=== PATIENT | male | born 1950 | race Caucasian/White ===

== ENCOUNTER 2022-08-12 16:04 | Inpatient (IN) | payer OTHER ==
[~2022-08-12] VITALS: Ht 185.4 cm; Wt 125.0 kg
[2022-08-12] MEDS ORDERED: ACETAMINOPHEN 325 MG TAB PO ONE ×2 (21:30→22:05)
[2022-08-12] MEDS ORDERED: SODIUM CHLORIDE 0.9% 1,000 ML IV ONE (21:30)
[2022-08-12] MEDS ORDERED: ceFAZolin 1GM/50ML 50 ML IV ONE (21:30)
[2022-08-12] MEDS ORDERED: ONDANSETRON HCL 4 MG/2 ML VIAL IV ONE (21:30)
[2022-08-12 22:22] LABS: Eosinophils # (auto) 0 10 ^3/uL (0-0.8); Eosinophils % (auto) 0.3 % (0.0-7.0); Hemoglobin 14.2 g/dL (13.5-17.5); Lymphocytes # (auto) 0.9 10 ^3/uL (0.4-5.4); Mean Corpuscular Hemoglobin 26.7 pg (28.0-32.0); Neutrophils % (auto) 84.5 % (37.0-80.0)
[2022-08-12 22:24] LABS: Basophils # (auto) 0.1 10 ^3/uL (0-0.2); Basophils % (auto) 0.6 % (0.0-2.0); Hematocrit 42.5 % (41.0-53.0); Lymphocytes % (auto) 7.4 % (10.0-50.0); Mean Corpuscular Hgb Conc. 33.5 g/dL (32.0-36.0); Mean Corpuscular Volume 79.8 fL (80.0-100.0); Monocytes # (auto) 0.8 10 ^3/uL (0-1.3); Monocytes % (auto) 7.2 % (0.0-12.0); Neutrophils # (auto) 9.9 10 ^3/uL (1.6-8.6); Nucleated Red Blood Cells % 0.1 %; Red Blood Cells 5.33 10^6/uL (4.5-5.90); Red Cell Distribution Width 16.1 % (11.8-14.3); White Blood Cell 11.7 10^3/uL (4.4-10.8)
[2022-08-12 22:34] LABS: Albumin 2.7 g/dL (3.4-5.0); Potassium 3.8 mmol/L (3.5-5.1)
[2022-08-12 22:51] LABS: BUN/Creatinine Ratio 16.1 (10.0-20.0); Bilirubin, Total 0.5 mg/dL (0.2-1.0); CRP High Sensitivity 15.9 mg/dL (< 0.3); Total Protein 8.3 g/dL (6.4-8.2)
[2022-08-13] MEDS ORDERED: VANCOMYCIN PER PHARMACY 0 MG IV SCH (07:00)
[2022-08-13] MEDS ORDERED: ONDANSETRON HCL 4 MG/2 ML VIAL IV PRN (07:00)
[2022-08-13] MEDS ORDERED: DEXTROSE (50%) 50ML SYRG IV PRN (07:00)
[2022-08-13] MEDS: InsuLIN REG 1unit/0.01ml Soln (100units/ml) SC SCH ×4 (07:45→23:04)
[2022-08-13] MEDS: ACCU-CHEK COMFORT CURVE STRIP VI SCH ×4 (07:45→22:00)
[2022-08-13] MEDS: VANCOMYCIN 1GM/250ML 250 ML IV SCH ×2 (07:52→09:04)
[2022-08-13] MEDS ORDERED: VANCOMYCIN 1GM/250ML 250 ML IV SCH (10:00)
[2022-08-13] MEDS: ENOXAPARIN SOD 40 MG/0.4 ML SYRINGE SC SCH (10:09)
[2022-08-13 17:55] VITALS: BP 159/63
[2022-08-13] MEDS: glipiZIDE 5 MG TAB PO SCH (18:30)
[2022-08-13 20:00] VITALS: BP 128/57
[2022-08-13 22:00] VITALS: BP 128/57
[2022-08-13] MEDS: ATORVASTATIN 20 MG TAB PO SCH (22:44)
[2022-08-13] MEDS: CARVEDILOL 12.5 MG TAB PO SCH (22:45)
[2022-08-13] MEDS: HYDROcodone-ACET 10/325MG TAB PO PRN (22:46)
[2022-08-13] MEDS: GABAPENTIN 300 MG CAP PO SCH (22:46)
[2022-08-14] VITALS (7 sets, daily range): BP systolic 104–160; BP diastolic 54–66
[2022-08-14] MEDS: VANCOMYCIN 1GM/250ML 250 ML IV SCH ×2 (00:25→14:38)
[2022-08-14] MEDS: InsuLIN REG 1unit/0.01ml Soln (100units/ml) SC SCH ×5 (06:31→23:15)
[2022-08-14] MEDS: ACCU-CHEK COMFORT CURVE STRIP VI SCH ×4 (06:34→22:00)
[2022-08-14] MEDS: glipiZIDE 5 MG TAB PO SCH ×2 (06:34→18:17)
[2022-08-14] MEDS: LOSARTAN POTASSIUM 25 MG TAB PO SCH (10:02)
[2022-08-14] MEDS: CARVEDILOL 12.5 MG TAB PO SCH ×2 (10:03→23:03)
[2022-08-14] MEDS: GABAPENTIN 300 MG CAP PO SCH ×2 (10:03→23:01)
[2022-08-14] MEDS: DIGOXIN 0.25 MG TAB PO SCH (10:03)
[2022-08-14] MEDS: ENOXAPARIN SOD 40 MG/0.4 ML SYRINGE SC SCH (10:03)
[2022-08-14] MEDS: HYDROcodone-ACET 10/325MG TAB PO PRN (16:40)
[2022-08-14] MEDS: APIXABAN 5 MG TAB PO SCH (23:01)
[2022-08-14] MEDS: ATORVASTATIN 20 MG TAB PO SCH (23:01)
[2022-08-15] VITALS (7 sets, daily range): BP systolic 103–143; BP diastolic 57–83
[2022-08-15 05:56] LABS: Basophils # (auto) 0.1 10 ^3/uL (0-0.2); Basophils % (auto) 0.7 % (0.0-2.0); Eosinophils # (auto) 0.1 10 ^3/uL (0-0.8); Eosinophils % (auto) 1.9 % (0.0-7.0); Hematocrit 33.2 % (41.0-53.0); Hemoglobin 11.6 g/dL (13.5-17.5); Lymphocytes # (auto) 0.7 10 ^3/uL (0.4-5.4); Lymphocytes % (auto) 9.8 % (10.0-50.0); Mean Corpuscular Hgb Conc. 34.9 g/dL (32.0-36.0); Mean Corpuscular Volume 77.4 fL (80.0-100.0); Monocytes # (auto) 0.4 10 ^3/uL (0-1.3); Monocytes % (auto) 5.1 % (0.0-12.0); Neutrophils # (auto) 5.7 10 ^3/uL (1.6-8.6); Neutrophils % (auto) 82.5 % (37.0-80.0); Nucleated Red Blood Cells % 0.1 %; Red Blood Cells 4.29 10^6/uL (4.5-5.90); Red Cell Distribution Width 15.8 % (11.8-14.3)
[2022-08-15 06:07] LABS: Albumin 1.9 g/dL (3.4-5.0); Potassium 3.8 mmol/L (3.5-5.1)
[2022-08-15 06:09] LABS: BUN/Creatinine Ratio 15.3 (10.0-20.0); Calcium 8.4 mg/dL (8.5-10.1); Phosphorus 2.9 mg/dL (2.5-4.90)
[2022-08-15] MEDS: VANCOMYCIN 1GM/250ML 250 ML IV SCH ×2 (06:16→21:00)
[2022-08-15] MEDS: InsuLIN REG 1unit/0.01ml Soln (100units/ml) SC SCH ×3 (06:17→17:41)
[2022-08-15] MEDS: glipiZIDE 5 MG TAB PO SCH ×2 (06:19→18:09)
[2022-08-15] MEDS: ACCU-CHEK COMFORT CURVE STRIP VI SCH ×4 (06:20→22:00)
[2022-08-15] MEDS: ENOXAPARIN SOD 40 MG/0.4 ML SYRINGE SC SCH (10:33)
[2022-08-15] MEDS: APIXABAN 5 MG TAB PO SCH ×2 (10:34→22:29)
[2022-08-15] MEDS: CARVEDILOL 12.5 MG TAB PO SCH ×2 (10:34→22:29)
[2022-08-15] MEDS: LOSARTAN POTASSIUM 25 MG TAB PO SCH (10:34)
[2022-08-15] MEDS: DIGOXIN 0.25 MG TAB PO SCH (10:34)
[2022-08-15] MEDS: GABAPENTIN 300 MG CAP PO SCH ×2 (10:35→22:28)
[2022-08-15] MEDS: ATORVASTATIN 20 MG TAB PO SCH (22:28)
[2022-08-16] VITALS (7 sets, daily range): BP systolic 138–159; BP diastolic 52–73
[2022-08-16] MEDS: glipiZIDE 5 MG TAB PO SCH ×2 (05:14→18:35)
[2022-08-16] MEDS: InsuLIN REG 1unit/0.01ml Soln (100units/ml) SC SCH ×4 (05:14→21:34)
[2022-08-16] MEDS: ACCU-CHEK COMFORT CURVE STRIP VI SCH ×4 (05:40→22:00)
[2022-08-16] MEDS: ENOXAPARIN SOD 40 MG/0.4 ML SYRINGE SC SCH (09:57)
[2022-08-16] MEDS: LOSARTAN POTASSIUM 25 MG TAB PO SCH (09:58)
[2022-08-16] MEDS: CARVEDILOL 12.5 MG TAB PO SCH ×2 (09:58→21:34)
[2022-08-16] MEDS: APIXABAN 5 MG TAB PO SCH ×2 (09:58→21:34)
[2022-08-16] MEDS: GABAPENTIN 300 MG CAP PO SCH ×2 (09:58→21:34)
[2022-08-16] MEDS: DIGOXIN 0.25 MG TAB PO SCH (11:16)
[2022-08-16] MEDS: VANCOMYCIN 1GM/250ML 250 ML IV SCH (12:50)
[2022-08-16] MEDS: HYDROcodone-ACET 10/325MG TAB PO PRN (21:18)
[2022-08-16] MEDS: ATORVASTATIN 20 MG TAB PO SCH (21:34)
[2022-08-17] MEDS: VANCOMYCIN 1GM/250ML 250 ML IV SCH ×2 (03:00→17:38)
[2022-08-17 05:00] VITALS: BP 129/59
[2022-08-17] MEDS: InsuLIN REG 1unit/0.01ml Soln (100units/ml) SC SCH ×4 (07:00→22:00)
[2022-08-17] MEDS: glipiZIDE 5 MG TAB PO SCH ×2 (07:00→17:38)
[2022-08-17] MEDS: ACCU-CHEK COMFORT CURVE STRIP VI SCH ×4 (07:03→22:09)
[2022-08-17 09:00] VITALS: BP 150/93
[2022-08-17] MEDS: APIXABAN 5 MG TAB PO SCH (09:53)
[2022-08-17] MEDS: LOSARTAN POTASSIUM 25 MG TAB PO SCH (09:54)
[2022-08-17] MEDS: GABAPENTIN 300 MG CAP PO SCH ×2 (09:54→22:07)
[2022-08-17] MEDS: DIGOXIN 0.25 MG TAB PO SCH (09:55)
[2022-08-17] MEDS: CARVEDILOL 12.5 MG TAB PO SCH ×2 (09:55→22:08)
[2022-08-17] MEDS: ENOXAPARIN SOD 40 MG/0.4 ML SYRINGE SC SCH (09:56)
[2022-08-17 11:41] LABS: Eosinophils # (auto) 0.2 10 ^3/uL (0-0.8); Hematocrit 37.5 % (41.0-53.0); Lymphocytes # (auto) 0.5 10 ^3/uL (0.4-5.4); Mean Corpuscular Volume 79.6 fL (80.0-100.0); Monocytes # (auto) 0.4 10 ^3/uL (0-1.3); Neutrophils # (auto) 7.4 10 ^3/uL (1.6-8.6); Neutrophils % (auto) 86.3 % (37.0-80.0); Nucleated Red Blood Cells % 0.1 %; Red Blood Cells 4.71 10^6/uL (4.5-5.90); White Blood Cell 8.5 10^3/uL (4.4-10.8)
[2022-08-17 11:42] LABS: Basophils # (auto) 0.1 10 ^3/uL (0-0.2); Basophils % (auto) 0.7 % (0.0-2.0); Eosinophils % (auto) 2.8 % (0.0-7.0); Hemoglobin 12.7 g/dL (13.5-17.5); Lymphocytes % (auto) 5.8 % (10.0-50.0); Monocytes % (auto) 4.4 % (0.0-12.0); Red Cell Distribution Width 15.7 % (11.8-14.3)
[2022-08-17 11:56] LABS: INR 1.12 (0.9-1.15); Partial Thromboplastin Time 35.7 sec (24.6-33.4)
[2022-08-17 11:58] LABS: BUN/Creatinine Ratio 18.1 (10.0-20.0); Calcium 8.8 mg/dL (8.5-10.1); Potassium 3.9 mmol/L (3.5-5.1)
[2022-08-17 13:00] VITALS: BP 145/83
[2022-08-17 17:00] VITALS: BP 131/68
[2022-08-17 22:00] VITALS: BP 147/69
[2022-08-17] MEDS: ATORVASTATIN 20 MG TAB PO SCH (22:07)
[2022-08-17] MEDS: HYDROcodone-ACET 10/325MG TAB PO PRN (22:10)
[2022-08-18 05:13] VITALS: BP 127/83
[2022-08-18 06:51] LABS: Urine Bacteria NONE SEEN /hpf (None Seen); Urine Blood Negative /uL (Negative); Urine Specific Gravity 1.016 (1.001-1.035); Urine WBC <1 /hpf (0 - 3)
[2022-08-18] MEDS: glipiZIDE 5 MG TAB PO SCH ×2 (07:00→17:17)
[2022-08-18] MEDS: InsuLIN REG 1unit/0.01ml Soln (100units/ml) SC SCH ×4 (07:00→22:00)
[2022-08-18] MEDS ORDERED: ceFAZolin 1GM/50ML 100 ML IV ONE (07:10)
[2022-08-18] MEDS ORDERED: BUPIVACAINE 0.5% P/F INJ 10 ML VIAL ONE (07:19)
[2022-08-18] MEDS: ACCU-CHEK COMFORT CURVE STRIP VI SCH ×4 (07:19→22:27)
[2022-08-18] MEDS ORDERED: LIDOCAINE 1% HCL (LOCAL ANESTH.) INJ 20ML MDV ONE (07:24)
[2022-08-18] MEDS ORDERED: LIDOCAINE 1% (LOCAL ANESTH.) PF 5ml SDV ONE (07:24)
[2022-08-18] MEDS ORDERED: GLYCOPYRROLATE 0.2 MG/ML 1ML VIAL ONE (07:25)
[2022-08-18] MEDS ORDERED: ONDANSETRON HCL 4 MG/2 ML VIAL ONE (07:25)
[2022-08-18] MEDS ORDERED: KETAMINE HCL 10 ML ONE (07:25)
[2022-08-18] MEDS ORDERED: PROPOFOL 10 MG/ML 20 ML IV ONE (07:25)
[2022-08-18] MEDS ORDERED: MIDAZOLAM HCL 2MG/2ML 2ml VIAL (1mg/ml) ONE (07:25)
[2022-08-18] MEDS ORDERED: ceFAZolin 1GM VL ONE (07:40)
[2022-08-18] MEDS ORDERED: ACCU-CHEK COMFORT CURVE STRIP VI ONE (08:45)
[2022-08-18] MEDS ORDERED: ONDANSETRON HCL 4 MG/2 ML VIAL IV PRN (08:45)
[2022-08-18] MEDS ORDERED: HYDROmorphone HCL 2 MG/ML VL/or syr IV PRN (08:45)
[2022-08-18] MEDS: ENOXAPARIN SOD 40 MG/0.4 ML SYRINGE SC SCH (10:00)
[2022-08-18] MEDS: GABAPENTIN 300 MG CAP PO SCH ×2 (10:16→22:27)
[2022-08-18] MEDS: LOSARTAN POTASSIUM 25 MG TAB PO SCH (10:16)
[2022-08-18] MEDS: CARVEDILOL 12.5 MG TAB PO SCH ×2 (10:17→22:27)
[2022-08-18] MEDS: DIGOXIN 0.25 MG TAB PO SCH (10:17)
[2022-08-18] MEDS: HYDROcodone-ACET 10/325MG TAB PO PRN ×2 (10:18→22:43)
[2022-08-18] MEDS: Juven Orange Powder PACKET 27.5gm PO SCH (10:19)
[2022-08-18] MEDS ORDERED: VANCOMYCIN 1GM/250ML 250 ML IV SCH (12:00)
[2022-08-18 13:00] VITALS: BP 122/62
[2022-08-18 16:39] VITALS: BP 119/61
[2022-08-18] MEDS ORDERED: ERTAPENEM SOD INJ 1 GM in SODIUM CHL 0.9% 50 ML IV ONE (21:30)
[2022-08-18 22:00] VITALS: BP 122/65
[2022-08-18] MEDS ORDERED: PIPERACILLIN-TAZOB 3.375GM 100 ML IV SCH (22:00)
[2022-08-18] MEDS: ATORVASTATIN 20 MG TAB PO SCH (22:27)
[2022-08-19 05:00] VITALS: BP 120/76
[2022-08-19] MEDS: ACCU-CHEK COMFORT CURVE STRIP VI SCH ×4 (06:19→21:33)
[2022-08-19] MEDS: glipiZIDE 5 MG TAB PO SCH ×2 (06:19→18:22)
[2022-08-19] MEDS: InsuLIN REG 1unit/0.01ml Soln (100units/ml) SC SCH ×4 (06:19→21:33)
[2022-08-19 09:00] VITALS: BP 128/73
[2022-08-19] MEDS ORDERED: levoFLOXacin 500 MG TAB PO SCH (10:00)
[2022-08-19] MEDS: LOSARTAN POTASSIUM 25 MG TAB PO SCH (10:01)
[2022-08-19] MEDS: CARVEDILOL 12.5 MG TAB PO SCH ×2 (10:02→21:32)
[2022-08-19] MEDS: GABAPENTIN 300 MG CAP PO SCH ×2 (10:02→21:32)
[2022-08-19] MEDS: DIGOXIN 0.25 MG TAB PO SCH (10:02)
[2022-08-19] MEDS: Juven Orange Powder PACKET 27.5gm PO SCH (10:03)
[2022-08-19] MEDS: ENOXAPARIN SOD 40 MG/0.4 ML SYRINGE SC SCH (10:03)
[2022-08-19 12:56] VITALS: BP 110/58
[2022-08-19 17:00] VITALS: BP 123/71
[2022-08-19] MEDS: ERTAPENEM SOD INJ 1 GM in SODIUM CHL 0.9% 50 ML IV SCH (21:31)
[2022-08-19] MEDS: ATORVASTATIN 20 MG TAB PO SCH (21:32)
[2022-08-19] MEDS: APIXABAN 5 MG TAB PO SCH (21:32)
[2022-08-19 22:00] VITALS: BP 148/70
[2022-08-20 05:00] VITALS: BP 135/60
[2022-08-20] MEDS: InsuLIN REG 1unit/0.01ml Soln (100units/ml) SC SCH ×4 (07:00→22:00)
[2022-08-20] MEDS: glipiZIDE 5 MG TAB PO SCH ×2 (07:00→23:04)
[2022-08-20] MEDS: ACCU-CHEK COMFORT CURVE STRIP VI SCH ×4 (07:04→22:15)
[2022-08-20 08:38] VITALS: BP 136/71
[2022-08-20] MEDS: Juven Orange Powder PACKET 27.5gm PO SCH (10:00)
[2022-08-20] MEDS: CARVEDILOL 12.5 MG TAB PO SCH ×2 (11:01→21:56)
[2022-08-20] MEDS: APIXABAN 5 MG TAB PO SCH ×2 (11:02→21:46)
[2022-08-20] MEDS: LOSARTAN POTASSIUM 25 MG TAB PO SCH (11:02)
[2022-08-20] MEDS: GABAPENTIN 300 MG CAP PO SCH ×2 (11:03→21:46)
[2022-08-20] MEDS: DIGOXIN 0.25 MG TAB PO SCH (11:03)
[2022-08-20 12:41] VITALS: BP 143/77
[2022-08-20 16:18] VITALS: BP 143/77
[2022-08-20] MEDS: ERTAPENEM SOD INJ 1 GM in SODIUM CHL 0.9% 50 ML IV SCH (21:45)
[2022-08-20] MEDS: DOCUSATE SOD 100 MG CAP PO SCH (21:46)
[2022-08-20] MEDS: ATORVASTATIN 20 MG TAB PO SCH (21:46)
[2022-08-20 22:00] VITALS: BP 154/64
[2022-08-20] MEDS: HYDROcodone-ACET 10/325MG TAB PO PRN (22:09)
[2022-08-21 05:00] VITALS: BP 135/58
[2022-08-21] MEDS: ACCU-CHEK COMFORT CURVE STRIP VI SCH ×4 (06:31→22:00)
[2022-08-21] MEDS: InsuLIN REG 1unit/0.01ml Soln (100units/ml) SC SCH ×4 (06:33→22:00)
[2022-08-21 08:00] VITALS: BP 127/49
[2022-08-21] MEDS: DOCUSATE SOD 100 MG CAP PO SCH ×2 (10:11→22:00)
[2022-08-21] MEDS: CARVEDILOL 12.5 MG TAB PO SCH ×2 (10:11→22:00)
[2022-08-21] MEDS: APIXABAN 5 MG TAB PO SCH (10:12)
[2022-08-21] MEDS: LOSARTAN POTASSIUM 25 MG TAB PO SCH (10:12)
[2022-08-21] MEDS: Juven Orange Powder PACKET 27.5gm PO SCH (10:12)
[2022-08-21] MEDS: GABAPENTIN 300 MG CAP PO SCH (10:13)
[2022-08-21] MEDS: DIGOXIN 0.25 MG TAB PO SCH (10:17)
[2022-08-21] MEDS: glipiZIDE 5 MG TAB PO SCH (10:23)
[2022-08-21 12:00] VITALS: BP 130/48
[2022-08-21 16:00] VITALS: BP 79/49
[2022-08-21 19:00] VITALS: BP 108/60
[2022-08-21] MEDS: HYDROcodone-ACET 10/325MG TAB PO PRN (20:41)
[2022-08-21 22:00] VITALS: BP_SYST 156; BP_SYST 96; BP_DIAS 66; BP_DIAS 88
[2022-08-22] MEDS: ERTAPENEM SOD INJ 1 GM in SODIUM CHL 0.9% 50 ML IV SCH ×2 (01:14→22:34)
[2022-08-22] MEDS: APIXABAN 5 MG TAB PO SCH ×3 (01:15→22:35)
[2022-08-22] MEDS: glipiZIDE 5 MG TAB PO SCH ×3 (01:16→22:00)
[2022-08-22] MEDS: ATORVASTATIN 20 MG TAB PO SCH ×2 (01:17→22:36)
[2022-08-22] MEDS: GABAPENTIN 300 MG CAP PO SCH ×3 (01:17→22:36)
[2022-08-22 05:00] VITALS: BP 145/69
[2022-08-22] MEDS: InsuLIN REG 1unit/0.01ml Soln (100units/ml) SC SCH ×4 (07:00→22:00)
[2022-08-22] MEDS: ACCU-CHEK COMFORT CURVE STRIP VI SCH ×4 (07:03→22:00)
[2022-08-22] MEDS: HYDROcodone-ACET 10/325MG TAB PO PRN ×2 (07:12→18:28)
[2022-08-22 08:00] VITALS: BP 147/71
[2022-08-22] MEDS: LOSARTAN POTASSIUM 25 MG TAB PO SCH (09:59)
[2022-08-22] MEDS: DOCUSATE SOD 100 MG CAP PO SCH ×2 (09:59→22:35)
[2022-08-22] MEDS: Juven Orange Powder PACKET 27.5gm PO SCH (10:23)
[2022-08-22 12:00] VITALS: BP 127/63
[2022-08-22 16:00] VITALS: BP 135/59
[2022-08-22] MEDS: CARVEDILOL 12.5 MG TAB PO SCH ×2 (18:27→22:35)
[2022-08-22] MEDS: DIGOXIN 0.25 MG TAB PO SCH (18:27)
[2022-08-22 22:00] VITALS: BP 127/77
[2022-08-23] VITALS (7 sets, daily range): BP systolic 121–137; BP diastolic 58–77
[2022-08-23] MEDS: ACCU-CHEK COMFORT CURVE STRIP VI SCH ×4 (06:36→22:00)
[2022-08-23] MEDS: InsuLIN REG 1unit/0.01ml Soln (100units/ml) SC SCH ×4 (06:36→22:00)
[2022-08-23] MEDS: APIXABAN 5 MG TAB PO SCH ×2 (09:29→22:53)
[2022-08-23] MEDS: LOSARTAN POTASSIUM 25 MG TAB PO SCH (09:29)
[2022-08-23] MEDS: DOCUSATE SOD 100 MG CAP PO SCH ×2 (09:30→22:50)
[2022-08-23] MEDS: glipiZIDE 5 MG TAB PO SCH ×2 (09:30→22:00)
[2022-08-23] MEDS: GABAPENTIN 300 MG CAP PO SCH ×2 (09:30→22:51)
[2022-08-23] MEDS: HYDROcodone-ACET 10/325MG TAB PO PRN ×3 (09:36→23:08)
[2022-08-23] MEDS: Juven Orange Powder PACKET 27.5gm PO SCH (11:46)
[2022-08-23] MEDS: DIGOXIN 0.25 MG TAB PO SCH (15:39)
[2022-08-23] MEDS: CARVEDILOL 12.5 MG TAB PO SCH ×2 (15:40→22:00)
[2022-08-23] MEDS: ERTAPENEM SOD INJ 1 GM in SODIUM CHL 0.9% 50 ML IV SCH (22:50)
[2022-08-23] MEDS: ATORVASTATIN 20 MG TAB PO SCH (22:53)
[2022-08-24 05:00] VITALS: BP 134/59
[2022-08-24 05:54] LABS: Basophils # (auto) 0.1 10 ^3/uL (0-0.2); Basophils % (auto) 1.7 % (0.0-2.0); Eosinophils # (auto) 0.2 10 ^3/uL (0-0.8); Eosinophils % (auto) 2.1 % (0.0-7.0); Hematocrit 36.7 % (41.0-53.0); Hemoglobin 12.9 g/dL (13.5-17.5); Lymphocytes # (auto) 1.2 10 ^3/uL (0.4-5.4); Lymphocytes % (auto) 14.4 % (10.0-50.0); Mean Corpuscular Hemoglobin 27.1 pg (28.0-32.0); Mean Corpuscular Hgb Conc. 35.2 g/dL (32.0-36.0); Mean Corpuscular Volume 76.9 fL (80.0-100.0); Monocytes # (auto) 0.5 10 ^3/uL (0-1.3); Monocytes % (auto) 5.8 % (0.0-12.0); Neutrophils # (auto) 6.3 10 ^3/uL (1.6-8.6); Nucleated Red Blood Cells % 0.1 %; Red Blood Cells 4.77 10^6/uL (4.5-5.90); Red Cell Distribution Width 15.5 % (11.8-14.3); White Blood Cell 8.3 10^3/uL (4.4-10.8)
[2022-08-24 06:15] LABS: Albumin 1.9 g/dL (3.4-5.0); BUN/Creatinine Ratio 24.4 (10.0-20.0); Bilirubin, Total 0.3 mg/dL (0.2-1.0); Calcium 9.1 mg/dL (8.5-10.1); Total Protein 8.1 g/dL (6.4-8.2)
[2022-08-24 08:30] VITALS: BP 116/57
[2022-08-24] MEDS: LOSARTAN POTASSIUM 25 MG TAB PO SCH (08:47)
[2022-08-24] MEDS: DIGOXIN 0.25 MG TAB PO SCH (08:48)
[2022-08-24] MEDS: HYDROcodone-ACET 10/325MG TAB PO PRN (08:48)
[2022-08-24] MEDS: CARVEDILOL 12.5 MG TAB PO SCH ×2 (08:48→21:31)
[2022-08-24] MEDS: APIXABAN 5 MG TAB PO SCH ×2 (08:48→21:28)
[2022-08-24] MEDS: DOCUSATE SOD 100 MG CAP PO SCH ×2 (08:48→21:28)
[2022-08-24] MEDS: GABAPENTIN 300 MG CAP PO SCH ×2 (08:49→21:28)
[2022-08-24] MEDS: glipiZIDE 5 MG TAB PO SCH ×2 (08:49→21:30)
[2022-08-24] MEDS: Juven Orange Powder PACKET 27.5gm PO SCH (10:00)
[2022-08-24] MEDS: ACCU-CHEK COMFORT CURVE STRIP VI SCH ×3 (11:30→21:29)
[2022-08-24] MEDS: InsuLIN REG 1unit/0.01ml Soln (100units/ml) SC SCH ×3 (12:10→21:36)
[2022-08-24 13:00] VITALS: BP 117/60
[2022-08-24 16:36] VITALS: BP 133/68
[2022-08-24 20:00] VITALS: BP 126/70
[2022-08-24 21:00] VITALS: BP 126/70
[2022-08-24] MEDS: ATORVASTATIN 20 MG TAB PO SCH (21:28)
[2022-08-24] MEDS: ERTAPENEM SOD INJ 1 GM in SODIUM CHL 0.9% 50 ML IV SCH (21:32)
[2022-08-25 05:00] VITALS: BP 125/73
[2022-08-25] MEDS: ACCU-CHEK COMFORT CURVE STRIP VI SCH ×4 (06:13→22:46)
[2022-08-25] MEDS: InsuLIN REG 1unit/0.01ml Soln (100units/ml) SC SCH ×4 (06:13→22:50)
[2022-08-25 08:52] VITALS: BP 132/54
[2022-08-25] MEDS: GABAPENTIN 300 MG CAP PO SCH ×2 (09:05→22:45)
[2022-08-25] MEDS: CARVEDILOL 12.5 MG TAB PO SCH ×2 (09:06→22:56)
[2022-08-25] MEDS: APIXABAN 5 MG TAB PO SCH ×2 (09:06→22:46)
[2022-08-25] MEDS: DOCUSATE SOD 100 MG CAP PO SCH ×2 (09:06→22:46)
[2022-08-25] MEDS: LOSARTAN POTASSIUM 25 MG TAB PO SCH (09:07)
[2022-08-25] MEDS: DIGOXIN 0.25 MG TAB PO SCH (09:34)
[2022-08-25] MEDS: glipiZIDE 5 MG TAB PO SCH ×2 (09:34→22:46)
[2022-08-25] MEDS: Juven Orange Powder PACKET 27.5gm PO SCH (10:00)
[2022-08-25 12:49] LABS: Albumin 1.9 g/dL (3.4-5.0); Phosphorus 3.3 mg/dL (2.5-4.90); Potassium 4.3 mmol/L (3.5-5.1)
[2022-08-25 13:00] VITALS: BP 125/58
[2022-08-25 15:31] LABS: INR 1.12 (0.9-1.15)
[2022-08-25 17:00] VITALS: BP 126/63
[2022-08-25 20:00] VITALS: BP 126/69
[2022-08-25] MEDS: ERTAPENEM SOD INJ 1 GM in SODIUM CHL 0.9% 50 ML IV SCH (20:37)
[2022-08-25] MEDS: HYDROcodone-ACET 10/325MG TAB PO PRN (21:03)
[2022-08-25 22:00] VITALS: BP 126/69
[2022-08-25] MEDS: ATORVASTATIN 20 MG TAB PO SCH (22:45)
[2022-08-26 05:00] VITALS: BP 144/67
[2022-08-26] MEDS: ACCU-CHEK COMFORT CURVE STRIP VI SCH ×4 (06:35→23:20)
[2022-08-26] MEDS: InsuLIN REG 1unit/0.01ml Soln (100units/ml) SC SCH ×4 (06:36→23:21)
[2022-08-26 09:00] VITALS: BP 129/68
[2022-08-26] MEDS: GABAPENTIN 300 MG CAP PO SCH ×2 (09:45→22:45)
[2022-08-26] MEDS: DOCUSATE SOD 100 MG CAP PO SCH ×2 (09:45→22:46)
[2022-08-26] MEDS: LOSARTAN POTASSIUM 25 MG TAB PO SCH (09:45)
[2022-08-26] MEDS: APIXABAN 5 MG TAB PO SCH ×2 (09:46→22:46)
[2022-08-26] MEDS: DIGOXIN 0.25 MG TAB PO SCH (09:46)
[2022-08-26] MEDS: glipiZIDE 5 MG TAB PO SCH ×2 (09:47→23:18)
[2022-08-26] MEDS: CARVEDILOL 12.5 MG TAB PO SCH ×2 (09:47→22:50)
[2022-08-26] MEDS: Juven Orange Powder PACKET 27.5gm PO SCH (10:00)
[2022-08-26 12:55] VITALS: BP 122/67
[2022-08-26] MEDS ORDERED: LIDOCAINE 1% (LOCAL ANESTH.) PF 5ml SDV ID ONE (15:30)
[2022-08-26 16:38] VITALS: BP 113/72
[2022-08-26 20:00] VITALS: BP 154/62
[2022-08-26 22:00] VITALS: BP 154/62
[2022-08-26] MEDS: SODIUM CHLOR 0.9% PF (SALINE LOCK) 10ML VIAL/SYR IV SCH (22:00)
[2022-08-26] MEDS: ATORVASTATIN 20 MG TAB PO SCH (22:45)
[2022-08-26] MEDS: ERTAPENEM SOD INJ 1 GM in SODIUM CHL 0.9% 50 ML IV SCH (22:53)
[2022-08-26] MEDS: HYDROcodone-ACET 10/325MG TAB PO PRN (23:20)
[2022-08-27 05:00] VITALS: BP 124/66
[2022-08-27] MEDS: InsuLIN REG 1unit/0.01ml Soln (100units/ml) SC SCH ×2 (07:00→11:56)
[2022-08-27] MEDS: ACCU-CHEK COMFORT CURVE STRIP VI SCH ×2 (07:54→11:41)
[2022-08-27 09:00] VITALS: BP 126/68
[2022-08-27] MEDS: APIXABAN 5 MG TAB PO SCH (09:37)
[2022-08-27] MEDS: SODIUM CHLOR 0.9% PF (SALINE LOCK) 10ML VIAL/SYR IV SCH (09:37)
[2022-08-27] MEDS: GABAPENTIN 300 MG CAP PO SCH (09:38)
[2022-08-27] MEDS: CARVEDILOL 12.5 MG TAB PO SCH (09:39)
[2022-08-27] MEDS: LOSARTAN POTASSIUM 25 MG TAB PO SCH (09:39)
[2022-08-27] MEDS: DOCUSATE SOD 100 MG CAP PO SCH (09:40)
[2022-08-27] MEDS: DIGOXIN 0.25 MG TAB PO SCH (09:40)
[2022-08-27] MEDS: glipiZIDE 5 MG TAB PO SCH (09:42)
[2022-08-27] MEDS: Juven Orange Powder PACKET 27.5gm PO SCH (09:44)
[2022-08-27] MEDS ORDERED: CIPR500T4 PO (12:41)
[2022-08-27] MEDS ORDERED: BACDST PO (12:41)
[2022-08-27 13:00] VITALS: BP 144/72
[2022-08-27 13:48] LABS: BUN/Creatinine Ratio 19.1 (10.0-20.0); Potassium 4.2 mmol/L (3.5-5.1)
== END 2022-08-27 22:50 | DRG 475 ==
LOC: ER 16:04 → EEVIPCON 16:04 → OVERFLOW 08-13 06:59 → CENTRAL 08-13 17:53
PROVIDERS: ADMIT Nurse Practitioner; ATTEND Internal Medicine
PROC: 0Y6N0ZF Detachment at Left Foot, Partial 5th Ray, Open Approach (ICD-10-PCS; 2022-08-18)
PROC: 0Y6Y0Z0 Detachment at Left 5th Toe, Complete, Open Approach (ICD-10-PCS; principal; 2022-08-18 07:38)
PROC: 02HV33Z Insertion of Infusion Device into Superior Vena Cava, Percutaneous Approach (ICD-10-PCS; 2022-08-26)
PROC: B548ZZA Ultrasonography of Superior Vena Cava, Guidance (ICD-10-PCS; 2022-08-26)
DX: M00.9 Pyogenic arthritis, unspecified (principal); L03.116 Cellulitis of left lower limb; M86.8X7 Other osteomyelitis, ankle and foot; I48.91 Unspecified atrial fibrillation; E11.22 Type 2 diabetes mellitus with diabetic chronic kidney disease; E11.40 Type 2 diabetes mellitus with diabetic neuropathy, unspecified; E11.621 Type 2 diabetes mellitus with foot ulcer; E11.69 Type 2 diabetes mellitus with other specified complication; E66.01 Morbid (severe) obesity due to excess calories; L97.529 Non-pressure chronic ulcer of other part of left foot with unspecified severity; E88.09 Other disorders of plasma-protein metabolism, not elsewhere classified; B96.20 Unspecified Escherichia coli [E. coli] as the cause of diseases classified elsewhere; K59.00 Constipation, unspecified; I25.10 Atherosclerotic heart disease of native coronary artery without angina pectoris; I12.9 Hypertensive chronic kidney disease with stage 1 through stage 4 chronic kidney disease, or unspecified chronic kidney disease; N18.31 Chronic kidney disease, stage 3a; Z20.822 Contact with and (suspected) exposure to COVID-19; Z68.38 Body mass index [BMI] 38.0-38.9, adult; I25.2 Old myocardial infarction; Z83.3 Family history of diabetes mellitus; Z89.422 Acquired absence of other left toe(s)
CPT/HCPCS: 36415; 36569; 71045; 73080; 73221; 73630; 73718; 80048; 80053; 80069; 80162; 80202; 81001; 82565; 82962; 83605; 84484; 85025; 85610; 85652; 85730; 86141; 86850; 86900; 86901; 87040; 87075; 87076; 87077; 87081; 87186; 87205; 87426; 93005; 93971; 96365; A4565; C1781; G0378; J0690; J1335; J1815; J2001; J2250; J2405; J2704; J3490